=== PATIENT | male | born 1950 | race Caucasian/White ===

== ENCOUNTER 2020-12-09 19:50 | Emergency (ER) | payer BC, MEDICARE, OTHER ==
[2020-12-09] MEDS ORDERED: Codeine/guaiFENesin 100mg-10 MG/5 ML Soln 118 ML Bottle PO ONE (19:51)
--- NOTE | 2020-12-09 20:17 | EDM.PDOC ---
ED HPI GENERAL MEDICAL PROBLEM - General Stated Complaint: SORE THROAT Time Seen by Provider: 12/09/20 20:15 Source of Information: Reports: Patient History Limitations: Reports: No Limitations - History of Present Illness INITIAL COMMENTS - FREE TEXT/NARRATIVE: Jaron complains of sore throat. This started yesterday,associated with painful swallowing ,cough and low grade fever.He is fully immunized against COVID-19 Throat Pain Score (Numeric/FACES): 10 - Related Data Allergies Allergy/AdvReac Type Severity Reaction Status Date / Time metformin Allergy Body Aches Verified 12/09/20 20:45 Penicillins Allergy Syncope Verified 12/09/20 20:45 ED ROS ENT - Review of Systems Review Of Systems: Comprehensive ROS is negative, except as noted in HPI. ED EXAM, ENT - Physical Exam Exam: See Below Exam Limited By: No Limitations General Appearance: Alert, WD/WN, No Apparent Distress Ears: Normal External Exam Nose: Normal Inspection Mouth/Throat: Normal Inspection, Normal Gums, Throat Pain. No: Throat Swelling, Tonsillar Exudates, Tonsillar Swelling, Uvular Edema Head: Atraumatic Neck: Normal Inspection Respiratory/Chest: No Respiratory Distress, Lungs Clear Course - Vital Signs Last Recorded V/S: Last Vital Signs Temp 98.9 F 12/09/20 19:55 Pulse 78 12/09/20 19:55 Resp 18 12/09/20 19:55 BP 152/86 H 12/09/20 19:55 Pulse Ox 96 12/09/20 19:55 - Orders/Labs/Meds Orders: Active Orders 24 hr Category Date Time Status Neck Soft Tissue [CR] Stat Exams 12/09/20 21:16 Taken Labs: Laboratory Tests 12/09/20 12/09/20 12/09/20 Range/Units 20:19 21:30 21:30 WBC 11.0 H (3.2-10.1) x10-3/uL RBC 5.89 (3.90-5.90) x10(6)uL Hgb 16.8 (12.9-17.7) g/dL Hct 50.6 H (38.3-50.1) % MCV 85.9 (80.8-98.7) fL MCH 28.5 (27.0-33.3) pg MCHC 33.2 (28.7-35.3) g/dL RDW 13.0 (12.4-15.0) % Plt Count 281 (117-477) x10(3)uL MPV 8.0 (6.7-11.0) fL Neut % (Auto) 71.3 (40.3-71.8) % Lymph % (Auto) 16.0 (15.8-45.3) % [place] % (Auto) 8.8 (5.5-15.2) % Eos % (Auto) 3.2 (0.1-6.8) % Baso % (Auto) 0.7 (0.3-3.8) % Neut # (Auto) 7.9 H (1.7-6.9) x10-3/uL Lymph # (Auto) 1.8 (0.5-4.5) x10-3/uL [place] # (Auto) 1.0 (0.0-1.2) x10-3/uL Eos # (Auto) 0.4 (0.0-0.6) x10-3/uL Baso # (Auto) 0.1 (0.0-0.3) x10-3/uL Sodium 136 (135-145) mmol/L Potassium 4.0 (3.5-5.3) mmol/L Chloride 98 L (100-110) mmol/L Carbon Dioxide 27 (21-32) mmol/L BUN 15 (7-18) mg/dL Creatinine 1.3 (0.70-1.30) mg/dL Est Cr Clr Drug Dosing TNP Estimated GFR (MDRD) 54 L (>60) BUN/Creatinine Ratio 11.5 (9-20) Glucose 296 H (80-116) mg/dL Calcium 9.3 (8.6-10.2) mg/dL C-Reactive Protein (0.5-0.9) mg/dL Group A Strep (PCR) Not detected (NOT DETECT) 12/09/20 Range/Units 21:30 WBC (3.2-10.1) x10-3/uL RBC (3.90-5.90) x10(6)uL Hgb (12.9-17.7) g/dL Hct (38.3-50.1) % MCV (80.8-98.7) fL MCH (27.0-33.3) pg MCHC (28.7-35.3) g/dL RDW (12.4-15.0) % Plt Count (117-477) x10(3)uL MPV (6.7-11.0) fL Neut % (Auto) (40.3-71.8) % Lymph % (Auto) (15.8-45.3) % [place] % (Auto) (5.5-15.2) % Eos % (Auto) (0.1-6.8) % Baso % (Auto) (0.3-3.8) % Neut # (Auto) (1.7-6.9) x10-3/uL Lymph # (Auto) (0.5-4.5) x10-3/uL [place] # (Auto) (0.0-1.2) x10-3/uL Eos # (Auto) (0.0-0.6) x10-3/uL Baso # (Auto) (0.0-0.3) x10-3/uL Sodium (135-145) mmol/L Potassium (3.5-5.3) mmol/L Chloride (100-110) mmol/L Carbon Dioxide (21-32) mmol/L BUN (7-18) mg/dL Creatinine (0.70-1.30) mg/dL Est Cr Clr Drug Dosing Estimated GFR (MDRD) (>60) BUN/Creatinine Ratio (9-20) Glucose (80-116) mg/dL Calcium (8.6-10.2) mg/dL C-Reactive Protein 1.2 H (0.5-0.9) mg/dL Group A Strep (PCR) (NOT DETECT) Meds: Medications Discontinued Medications Generic Name Dose Route Start Last Admin Trade Name Freq PRN Reason Stop Dose Admin Hydroxyzine HCl 50 mg 12/09/20 21:12 12/09/20 21:18 Hydroxyzine Hcl 50 Mg/Ml Sdv IM 12/09/20 21:13 50 mg ONETIME ONE Administration Morphine Sulfate 4 mg 12/09/20 21:12 12/09/20 21:18 Morphine 4 Mg/Ml Vial IM 12/09/20 21:13 4 mg ONETIME ONE Administration Departure - Departure Time of Disposition: 21:55 Disposition: Home, Self-Care 01 Condition: Good Clinical Impression: Sore throat - Discharge Information Instructions: Sore Throat, [id number] Referrals: Emeterio Ty MD [Primary Care Provider] - Forms: ED Department Discharge Additional Instructions: take robitussin with codeine 10ml every 6 hours as needed for throat pain. Follow up with primary care provider if not improving. take tylenol and iburprofen as needed for pain. Sepsis Event Note (ED) - Focused Exam Vital Signs: Vital Signs Temp Pulse Resp BP Pulse Ox 12/09/20 19:55 98.9 F 78 18 152/86 H 96 - Problem List & Annotations (1) Sore throat SNOMED Code(s): 264349832 Code(s): J02.9 - ACUTE PHARYNGITIS, UNSPECIFIED Status: Acute - Problem List Review Problem List Initiated/Reviewed/Updated: Yes - My Orders Last 24 Hours: My Active Orders 12/09/20 21:16 Neck Soft Tissue [CR] Stat - Assessment/Plan Last 24 Hours: My Active Orders 12/09/20 21:16 Neck Soft Tissue [CR] Stat Plan: Xray was negative. Strep Negative. I gave him Morphine IM. DC on NSAIDs and Robitussin AC
[2020-12-09] MEDS ORDERED: Morphine 4 MG/ML VIAL IM ONE (21:12)
[2020-12-09] MEDS ORDERED: hydrOXYzine HCl 50 MG/ML SDV IM ONE (21:12)
--- NOTE | 2020-12-11 13:19 | CR ---
INDICATION: Sore throat. NECK SOFT TISSUE [id number]: Two lateral views of the neck were obtained for soft tissue and revealed an appearance of thickening of the epiglottis raising question of epiglottitis. The airway was otherwise uncompromised. 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 IMPRESSION: The findings are suspicious for epiglottitis, but should be correlated clinically. [id number]
== END 2020-12-09 22:00 | disposition home or self-care (01) ==
LOC: FB.ED 19:50
DX: J02.9 Acute pharyngitis, unspecified (principal); Z88.8 Allergy status to other drugs, medicaments and biological substances; Z88.0 Allergy status to penicillin
CPT/HCPCS: 36415; 70360; 80048; 85025; 86140; 87651; 96372; 99283; A9270; J2270; J3410